=== PATIENT | male | born 1960 | race Caucasian/White ===

== ENCOUNTER 2021-01-20 07:55 | Outpatient (CLI) | payer SELFPAY ==
[2021-01-20 09:44] LABS: Alanine Aminotransferase 42 U/L (16-63); Albumin Level 4.3 g/dL (3.4-5.0); Alkaline Phosphatase 74 U/L (46-116); Anion Gap 5 mmol/L (8-16); Aspartate Amino Transferase 16 U/L (15-37); Bilirubin,Total 0.8 mg/dL (0.00-1.00); Blood Urea Nitrogen 16 mg/dL (7-18); Carbon Dioxide 31 mmol/L (21-32); Chloride 105 mmol/L (98-108); Cholesterol 176 mg/dL (0-200); Estimated Glomerular Filt Rate > 60; Glucose 100 mg/dL (70-99); HDL Direct 38 mg/dL (40-60); LDL Cholesterol Calculated 116 mg/dL (<130); Osmolality Calculated 293 mOsm/kg (285-295); Potassium 4.6 mmol/L (3.5-5.1); Sodium 141 mmol/L (136-145); Total Protein 7.9 g/dL (6.4-8.2); Triglycerides 112 mg/dL (0-150)
[2021-01-22 10:59] LABS: Vitamin D 25 Hydroxy 29 ng/mL (30-100)
== END 2021-01-20 07:56 | disposition home or self-care (01) ==
LOC: CHSLAB 08:09
PROVIDERS: PCP Physician Assistant
DX: E66.9 Obesity, unspecified (principal); E78.2 Mixed hyperlipidemia; I10 Essential (primary) hypertension; I11.9 Hypertensive heart disease without heart failure; I34.0 Nonrheumatic mitral (valve) insufficiency; E55.9 Vitamin D deficiency, unspecified
CPT/HCPCS: 36415; 80053; 80061; 82306; 84443

== ENCOUNTER 2021-03-21 16:23 | Emergency (ER) | payer OTHER, SELFPAY ==
[2021-03-21 16:30] VITALS: BP 154/89; PULSE 79; RESP 16; TEMP 37.2; O2SAT 99
--- NOTE | 2021-03-21 16:42 | ED.MALEGU ---
HPI - Male Genitourinary General Chief complaint: Abdominal Pain Stated complaint: abdominal pain Time Seen by Provider: 03/21/21 16:42 Source: patient Mode of arrival: ambulatory Limitations: no limitations History of Present Illness HPI Narrative: Naida Bar is a 60 yo male with a PMH of SVT comes to [facility] with 2-week history of dysuria and difficulty with starting stream. No nausea vomiting diarrhea or fever; states he drinks a lot of Gatorade Did not get a Covid vaccine Related Data Home Medications Medication Instructions Recorded Confirmed aspirin [Adult Low Dose Aspirin] 81 mg PO DAILY 03/21/21 03/21/21 diltiazem HCl 300 mg PO DAILY 03/21/21 03/21/21 lansoprazole [Prevacid] 30 mg PO DAILY 03/21/21 03/21/21 Allergies Allergy/AdvReac Type Severity Reaction Status Date / Time niacin Allergy Unknown Verified 06/29/15 11:09 Review of Systems Review of Systems: CONSTITUTIONAL: Denies fever, chills, sweats. EYES: Denies visual changes, redness, discharge. ENT: Denies rhinorrhea, congestion, sore throat, otalgia. CARDIOVASCULAR: Denies chest pain, palpitations, edema. RESPIRATORY: Denies dyspnea, wheezing, cough GASTROINTESTINAL: Denies abdominal pain, nausea, vomiting, diarrhea. GENITOURINARY: Has dysuria, hematuria, abnormal discharge SKIN: Denies rash or itching. NEUROLOGIC: Denies numbness, or focal weakness. PSYCHIATRIC: Denies anxiety or depression. [facility] Past Medical History Medical History GERD (gastroesophageal reflux disease) SVT (supraventricular tachycardia) Social History Social History (Updated 03/21/21 @ 16:45 by Giselle Norwood CNP) Smoking status: Never smoker Comments At time of signature, I agree with nursing past medical, surgical, social and family history. There is no relevant family history pertinent to the presenting complaint. Blood pressure elevated at this visit takes medication for SVT and and sees [employer] on regular basis Exam Narrative: GENERAL: This is a well-nourished, well-developed patient, in mild distress. HEAD: normocephalic, atraumatic. EYES: PERRL. Sclera clear/white. Vision is grossly intact. EARS: External ears normal, auditory canals clear and without drainage, TMs normal without perforation. Hearing grossly intact. NOSE: External nose normal without nasal discharge, nares without redness, no rhinorrhea. THROAT: Mucous membranes moist, posterior pharynx NECK: Neck supple, non-tender CARDIOVASCULAR: Regular rate and rhythm without murmurs, gallops, or rubs. RESPIRATORY: Clear to auscultation. Breath sounds equal bilaterally. No wheezes, rales, or rhonchi. GASTROINTESTINAL: Abdomen soft, non-tender, SKIN: warm, intact with no suspicious lesions or rash, good texture and turgor. NEURO: awake, alert, and oriented to person, place and time. There were no obvious focal neurologic abnormalities. Steady gait EXTREMITIES: Normal range of motion. BACK: Nontender without deformity Course Course Emergency Course: UA shows 2+ blood Started on Cipro 500 mg 1 twice daily x5 days while patient makes decision about going to the ER are to get a renal scan discussed the likelihood that this is either renal stone or prostate related. Does not have a primary care physician Vital Signs Vital signs: Vital Signs Temperature 98.9 F 03/21/21 16:30 Pulse Rate 79 03/21/21 16:30 Respiratory Rate 16 03/21/21 16:30 Blood Pressure 154/89 H 03/21/21 16:30 Pulse Oximetry 99 03/21/21 16:30 Temperature 98.9 F 03/21/21 16:30 Pulse Rate 79 03/21/21 16:30 Respiratory Rate 16 03/21/21 16:30 Blood Pressure 154/89 H 03/21/21 16:30 Pulse Oximetry 99 03/21/21 16:30 MDM - Male Genitourinary Differential Diagnosis Differential diagnosis: Likely urinary tract infection, urethritis, prostatitis and other Lab Data Labs: Urine Glucose Negative
== END 2021-03-21 17:22 | disposition home or self-care (01) ==
PROVIDERS: Emergency Provider Nurse Practitioner
DX: R10.30 Lower abdominal pain, unspecified (principal); R31.9 Hematuria, unspecified; K21.9 Gastro-esophageal reflux disease without esophagitis
CPT/HCPCS: 81003; 87086; 99213; G0463

== ENCOUNTER 2021-03-21 18:26 | Emergency (ER) | payer OTHER, SELFPAY ==
--- NOTE | ~2021-03-21 | CT_ITS ---
EXAMINATION: CT abdomen pelvis w con DATE: 03/21/2021 20:14 INDICATION: Hematuria. Suprapubic pain. TECHNIQUE: Computed tomography (CT) of the abdomen and pelvis was performed with 100 cc Omnipaque 350 intravenous contrast. The dose-length product was 718.17 mGy-cm. Automated exposure control and iter ative reconstruction technique were employed. COMPARISON: None. FINDINGS: Lung bases are unremarkable. No significant pleural or pericardial effusion. Heart size is normal. No significant vascular abnormality. No lymphadenopathy. Fatty infiltration of the liver. The spleen, pancreas, adrenal glands and right kidney are unremarkab le. There is a small exophytic left renal cyst. There is acute sigmoid diverticulitis without evidenc e for perforation or abscess. Small amount of free fluid in the pelvis. No free air. Nonobstructive b owel gas pattern. Gallbladder is present. IMPRESSION: 1. Acute uncomplicated sigmoid diverticulitis. Reviewed, dictated and finalized at location A.
[2021-03-21 18:46] VITALS: BP 155/94; PULSE 77; RESP 16; TEMP 37.1; O2SAT 98
--- NOTE | 2021-03-21 18:49 | ED.GENADULT ---
HPI - General Adult General Chief complaint: Urogenital-Male Stated complaint: sent to get a CT Source: patient and family Mode of arrival: ambulatory Limitations: no limitations History of Present Illness HPI narrative: Naida is a 60M with a PMH of suprapubic discomfor and SVT that was referred to the ED from urgent care for hematuria. He has had worsening suprapubic pain for the last 6 months or so. It is worse in the morning and better later in the day, especially after he urinates. He has noticed a decreased stream and some urinary urgency over the last few months as well. He denies fevers, chills, N/V, diarrhea, flank pain, SOB and chest pain. Related Data Home Medications Medication Instructions Recorded Confirmed aspirin [Adult Low Dose Aspirin] 81 mg PO DAILY 03/21/21 03/21/21 diltiazem HCl 300 mg PO DAILY 03/21/21 03/21/21 lansoprazole [Prevacid] 30 mg PO DAILY 03/21/21 03/21/21 Allergies Allergy/AdvReac Type Severity Reaction Status Date / Time niacin Allergy Unknown Unknown Verified 03/21/21 18:52 Review of Systems Constitutional: Constitutional: Reports no additional constitutional complaints Eyes: Eyes: Reports no additional eye complaints ENT: Reports system reviewed and no additional complaints, except as documented Cardiovascular: Cardiovascular: Reports no additional cardiovascular complaints Respiratory: Respiratory: Reports no additional respiratory complaints Gastrointestinal: Gastrointestinal: Reports no additional gastrointestinal complaints Genitourinary: Genitourinary: Reports as per HPI Musculoskeletal: Musculoskeletal: Reports no additional musculoskeletal complaints Integumentary/Breasts: Skin/Breast: Reports system reviewed and no additional complaints, except as docu Neurologic: Reports system reviewed and no additional complaints, except as documented Psychiatric: Psychiatric: Reports no additional psychiatric complaints Endocrine: Endocrine: Reports no additional endocrine complaints Hematologic/Lymphatic: Hematologic/Lymphatic: Reports no additional hematologic/lymphatic complaints Allergic/Immunologic: Allergic/Immunologic: Reports no additional allergic/immunologic complaints [facility] Past Medical History Medical History GERD (gastroesophageal reflux disease) SVT (supraventricular tachycardia) Social History Social History Smoking status: Never smoker Exam Const: General: no acute distress and alert Orientation/consciousness: patient oriented x3 Limitations: No altered mental status HENMT: Head: normal to inspection Other: normocephalic, atraumatic Eyes: Conjunctivae: conjunctivae normal Pupils: Equal, round and reactive pupils present Neck: Neck: normal visual inspection Chest: Chest palpation & inspection: normal inspection of the chest Resp: Effort & Inspection: normal respiratory effort, not labored, no retractions and no use of accessory muscles Cardio: Rate: regular rate GI: Inspection: non-distended GI Palp: Yes Soft to palpation, No Tenderness to palpation present (GI), No Guarding due to palpation present (GI) and No Rigid due to palpation : General: Yes no CVA tenderness Other: Moderate suprapubic tenderness Skin: General skin exam: normal color Rashes: no rashes Neuro: General: patient oriented x3 and moves all extremities Extrem: General: normal to inspection Psych: Appearance: grossly normal and well kempt Mental Status: mental status grossly normal Thought content: Yes Normal thought content present Course Course Emergency Course: , and blood work as well as a bladder scan. Labs largely unremarkable, outside UA showed only 2+ hematuria EXAMINATION: CT abdomen pelvis w con DATE: 03/21/2021 20:14 INDICATION: Hematuria. Suprapubic pain. TECHNIQUE: Computed tomography (CT) of the abdomen and pelvis was performed
--- NOTE | 2021-03-21 18:59 | PC.NURSE ---
Bladder scan completed. 43 ml noted during scan. Dr. Woods notified.
[2021-03-21 19:10] LABS: Basophils Absolute Auto 0.03 K/mm3 (0.00-0.10); Basophils Percent Auto 0.3 % (0.0-1.0); Eosinophils Absolute Auto 0.16 K/mm3 (0.02-0.50); Eosinophils Percent Auto 1.8 % (1.0-6.0); Hematocrit 43.1 % (40.0-54.0); Hemoglobin 15.5 g/dL (14.0-18.0); Immature Granulocyte Absolute 0.05 K/mm3 (0.00-0.00); Immature Granulocyte Percent A 0.6 % (0.0-0.0); Lymphocytes Percent Auto 20.2 % (18.0-42.0); Mean Corpuscular Hemoglobin 32.2 pg (27.0-31.0); Mean Corpuscular Volume 89.4 fL (78.0-102.0); Mean Platelet Volume 9.6 fl (8.7-11.0); Monocytes Absolute Auto 0.73 K/mm3 (0.10-0.90); Monocytes Percent Auto 8.2 % (2.0-11.0); Neutrophils Absolute Auto 6.1 K/mm3 (1.7-7.2); Neutrophils Percent Auto 68.9 % (50.0-70.0); Platelet Count Result 242 K/mm3 (150-420); Red Blood Count 4.82 M/mm3 (4.70-6.10); Red Cell Distribution Width 11.3 % (11.6-14.4); White Blood Count 8.9 K/mm3 (4.8-10.8)
--- NOTE | 2021-03-21 19:34 | PC.NURSE ---
Report given to NEVAEH English
[2021-03-21 19:37] LABS: Alanine Aminotransferase 35 U/L (16-63); Albumin Level 3.9 g/dL (3.4-5.0); Alkaline Phosphatase 76 U/L (46-116); Anion Gap 10 mmol/L (8-16); Aspartate Amino Transferase 19 U/L (15-37); Bilirubin,Total 0.6 mg/dL (0.00-1.00); Blood Urea Nitrogen 13 mg/dL (7-18); Calcium 8.6 mg/dL (8.5-10.1); Carbon Dioxide 29 mmol/L (21-32); Chloride 101 mmol/L (98-108); Estimated CRCL calculation 76 ml/min; Estimated Glomerular Filt Rate > 60; Glucose 99 mg/dL (70-99); Osmolality Calculated 290 mOsm/kg (285-295); Potassium 4.1 mmol/L (3.5-5.1); Prostate Specific Antigen 0.7 ng/mL (< OR = 4.0); Sodium 140 mmol/L (136-145)
[2021-03-21] MEDS: CIPROFLOXACIN 500 MG TAB PO (21:15)
[2021-03-21] MEDS: metroNIDAZOLE 250 MG TABLET 500 MG PO (21:15)
[2021-03-21 21:25] VITALS: BP 128/88; PULSE 70; RESP 20; O2SAT 96
== END 2021-03-21 21:32 | disposition home or self-care (01) ==
PROVIDERS: Emergency Provider Family Medicine; PCP Physician Assistant
DX: K57.92 Diverticulitis of intestine, part unspecified, without perforation or abscess without bleeding (principal)
CPT/HCPCS: 36415; 74177; 80053; 84153; 85025; 99283; 99284; A9270; G0103; Q9967

== ENCOUNTER 2021-04-08 16:45 | Emergency (ER) | payer OTHER, SELFPAY ==
--- NOTE | ~2021-04-08 | XR_ITS ---
EXAMINATION: XR hand LT min 3V DATE: 04/08/2021 18:39 INDICATION: Left hand injury with a circular saw. TECHNIQUE: 4 views of left hand were obtained. COMPARISON: None. FINDINGS: There are lacerations of the third and fourth digits. There is a comminuted extra-articular fracture of fourth distal phalanx. There are punctate chips of bone at ulnar aspect of third distal phalanx, likely fractures. There is severe osteoarthritis of first carpometacarpal joint and mild ost eoarthritis of many of the metacarpophalangeal joints and interphalangeal joints. There is moderate o steoarthritis of first interphalangeal joint and second-fifth distal interphalangeal joints. IMPRESSION: 1. Comminuted fracture of fourth distal phalanx. Chip fractures of third distal phalanx. 2. Polyarticular osteoarthritis. Reviewed, dictated and finalized at location A. [employer]
--- NOTE | 2021-04-08 18:17 | ED.WOUNDLAC ---
HPI - Wound/Laceration General Chief Complaint: Wound/Laceration Stated Complaint: laceration to 2 fingers Time Seen by Provider: 04/08/21 18:17 Source: patient Mode of arrival: ambulatory Limitations: no limitations History of Present Illness HPI narrative: 60-year-old man comes in today complaining of lacerations to his left index long and ring fingers happened just prior to arrival. Patient states he was using a circular saw on a sheet of plywood when he cut his fingers. He does not recall his last tetanus shot. States he has some numbness of his fingertips on his long and ring finger. He is right handed Onset (ago): minute(s) Location: other ( left index long and ring fingers) Place: home Patient tetanus UTD: No Context: accidental Associated symptoms: pain and loss of feeling/numbness Treatments prior to arrival: bandage Related Data Home Medications Medication Instructions Recorded Confirmed aspirin [Adult Low Dose Aspirin] 81 mg PO DAILY 03/21/21 04/08/21 diltiazem HCl 300 mg PO DAILY 03/21/21 04/08/21 lansoprazole [Prevacid] 30 mg PO DAILY 03/21/21 04/08/21 Allergies Allergy/AdvReac Type Severity Reaction Status Date / Time niacin Allergy Unknown Unknown Verified 04/08/21 19:13 Review of Systems Constitutional: Constitutional: Denies chills and Denies fever(s) Gastrointestinal: Gastrointestinal: Denies nausea and Denies vomiting Integumentary/Breasts: Skin/Breast: Reports as per HPI, Denies pruritus, Denies erythema and Denies rash Neurologic: Denies dizziness Hematologic/Lymphatic: Hematologic/Lymphatic: Denies easy bleeding and Denies easy bruising PMF Past Medical History Medical History GERD (gastroesophageal reflux disease) SVT (supraventricular tachycardia) Social History Social History Smoking status: Never smoker Exam Const: General: healthy appearing and alert Orientation/consciousness: patient oriented x3 Other: mild acute distress. Skin: General skin exam: normal color, no jaundice and no pallor Rashes: no rashes Other: Oblique, irrregular lacerations on the ulnar/palmar aspects of the left ring and long fingers distal to the DIP.. Nail beds are intact. abrasion on the tip of the index finger. Decreased sensation just distal to the lacerations. Neuro: General: patient oriented x3 Extrem: General: normal to inspection and no clubbing, cyanosis or edema Psych: Appearance: grossly normal and well kempt Mental Status: mental status grossly normal Affect: normal affect Attitude: cooperative Thought content: Yes Normal thought content present Course Vital Signs Vital signs: Vital Signs Temperature 37.0 C 04/08/21 19:14 Pulse Rate 64 04/08/21 19:14 Respiratory Rate 14 04/08/21 19:14 Blood Pressure 161/87 H 04/08/21 19:14 Pulse Oximetry 98 04/08/21 19:14 Temperature 37.0 C 04/08/21 19:14 Pulse Rate 64 04/08/21 19:14 Respiratory Rate 14 04/08/21 19:14 Blood Pressure 161/87 H 04/08/21 19:14 Pulse Oximetry 98 04/08/21 19:14 Procedures Laceration Laceration 1: Date: 04/08/21 Time: 19:32 Site: other ( ring finger) Side (If applicable): left Size (cm): 2 Description: irregular Depth: simple, single layer ( into the bone on the ulnar aspect of the distal phalanx) Local Anesthetic: lidocaine 1% ( digital block) Amount of anesthesia used (mL): 3 Pre-repair: wound explored, irrigated extensively (200 cc soapy water, 100 NS), extensive debridement and wound margins revised ====== Skin Level ====== Skin layer closed with: nylon Size (cm): 4-0 Number of sutures: 7 Technique: simple, interrupted ====== Subcutaneous Layer ====== ====== Muscle Layer ====== ====== Tendon Layer ====== Laceration 2: Date:
[2021-04-08] MEDS: TETANUS,DIPHTHERIA,AC PERTUSSIS ADULT 0.5 ML (ADACEL) IM (18:56)
[2021-04-08] MEDS: traMADol HCL (*CRX) 50 MG TABLET PO (18:58)
[2021-04-08 19:14] VITALS: BP 161/87; PULSE 64; RESP 14; TEMP 37; O2SAT 98
[2021-04-08] MEDS: LIDOCAINE HCL 1% LOCAL INJ 20 ML VIAL INFILTRATE (19:31)
--- NOTE | 2021-04-08 20:50 | PC.NURSE ---
seven sutures to left ring finger and nine suture to left 3th finger.
[2021-04-08] MEDS: CEPHALEXIN 500 MG CAPSULE 1000 MG PO (21:04)
[2021-04-08 21:43] VITALS: BP 159/88; PULSE 65; RESP 15; O2SAT 97
== END 2021-04-08 21:12 | disposition home or self-care (01) ==
PROVIDERS: Emergency Provider Emergency Medicine; PCP Physician Assistant
DX: S61.215A Laceration without foreign body of left ring finger without damage to nail, initial encounter (principal); S61.213A Laceration without foreign body of left middle finger without damage to nail, initial encounter; W27.0XXA Contact with workbench tool, initial encounter
CPT/HCPCS: 12002; 73130; 90471; 90715; 99283; A9270

== ENCOUNTER 2021-11-27 16:17 | Emergency (ER) | payer OTHER, SELFPAY ==
[2021-11-27 16:26] VITALS: BP 139/83; PULSE 74; RESP 20; TEMP 36.8; O2SAT 98
--- NOTE | 2021-11-27 17:38 | ED.EYEPROB ---
HPI - Eye Problem General Chief complaint: Eye Problems Stated complaint: oil in right eye Time Seen by Provider: 11/27/21 16:40 Source: patient, RN notes reviewed and old records reviewed Mode of arrival: ambulatory Limitations: no limitations History of Present Illness HPI Narrative: 61 year old male who presents to [facility] with complaints of getting air conditioner oil in his right eye at about 0800 this morning, He states that he flushed his right eye out a couple times today with water for 30seconds to a minute at a time. He reports that the vision in his right eye has become fussy as the day has progressed so he though he better get his eye looked at. Patient states right eye feels scratchy when he blinks and his eye is red and is constantly watering. Patient states that he had his glasses on and stuff flew up under his glasses and go in his right eye, states material is called polyalkalene glycol PAG oil and has viscosity of 68 [place] acuity right eye with glasses 20/70 left eye with glasses. MD chief complaint: other (polyalkalene glycol(air conditiioner oil)) Onset (ago): hour(s) (at o8oo this morning) Related Data Home Medications Medication Instructions Recorded Confirmed aspirin 81 mg tablet,delayed 81 mg PO DAILY 03/21/21 11/27/21 release (Adult Low Dose Aspirin) diltiazem HCl 300 mg 300 mg PO DAILY 03/21/21 11/27/21 capsule,extended release 24 hr lansoprazole 30 mg capsule,delayed 30 mg PO DAILY 03/21/21 11/27/21 release (Prevacid) Allergies Allergy/AdvReac Type Severity Reaction Status Date / Time niacin Allergy Unknown Unknown Verified 04/08/21 19:13 Review of Systems Review of Systems: CONSTITUTIONAL: Denies fever, chills, or sweats. EYES: Positive for visual changes with redness to right eye constant watering and feels abrasive when he blinks. ENT: Denies rhinorrhea, congestion, sore throat, or otalgia. CARDIOVASCULAR: Denies chest pain, palpitations, or edema. RESPIRATORY: Denies cough or dyspnea. GASTROINTESTINAL: Denies abdominal pain, nausea, vomiting, or diarrhea. GENITOURINARY: Denies dysuria or hematuria. SKIN: Denies rash or itching. MUSCULOSKELETAL: Denies back pain, joint pain, or myalgia. NEUROLOGIC: Denies headache, numbness, or weakness. PSYCHIATRIC: Denies anxiety or depression. All systems reviewed & are unremarkable except as noted in HPI and below PMFSH Past Medical History Medical History GERD (gastroesophageal reflux disease) SVT (supraventricular tachycardia) Social History Social History Smoking status: Never smoker Comments At time of signing agree with nursing documentation of past medical,surgical, social, and family history.No relevant family history pertinent to presenting complaint. Exam Narrative: GENERAL: Well-appearing, well-nourished, and in no acute distress, HEAD: Normocephalic, atraumatic. EYES: PERRLA and EOMI. visual acuity right eye with glasses 20/70, left eye with glasses 20/20. Right eye has red sclera and constant watering reports vision to be fuzzy and feels abrasive irritation when he blinks no sharp pain. ENT: Nares clear, no rhinorrhea or epistaxis. Mucous membranes moist.TM's normal with good light reflex, throat pink with no lesions exudates or tonsil swelling. NECK: Supple.no lymphadenopathy CHEST: Clear to auscultation. No respiratory distress.O2 sat 98% on room air HEART: Regular rate and rhythm. No murmur heard. Normal peripheral pulses. ABDOMEN: Soft, nontender, nondistended, normal active bowel sounds. EXTREMITIES: Normal range of motion. No edema. SKIN: Warm, dry, no rash. NEURO: No focal deficits. Alert and oriented x3. Course Course Level of Care: Express Care Visit Vital Signs Vital signs: Vital Signs Temperature 36.8 C 11/27/21 16:26 Pulse Rate 74 11/27/21 16:26 Respiratory Rate 20 11/27/21 16:26 Blood P
--- NOTE | 2021-11-27 20:17 | PC.NURSE ---
1720 DATASTAGE CONSULTANT/RN previously spoke with poison control and eye irrigated for 5 minutes with water as recommended. poison control aware pt did have SDS info as they requested. pt stated no change in eye after irrigation. Noted DATASTAGE CONSULTANT previously spoke with [facility] physician , recommended transfer to [place].
== END 2021-11-27 17:20 | disposition short-term general hospital (02) ==
PROVIDERS: Emergency Provider Registered Nurse
DX: T26.91XA Corrosion of right eye and adnexa, part unspecified, initial encounter (principal); K21.9 Gastro-esophageal reflux disease without esophagitis; Z79.82 Long term (current) use of aspirin
CPT/HCPCS: 99212; G0463

== ENCOUNTER 2023-04-12 08:14 | Outpatient (CLI) | payer OTHER, SELFPAY ==
[2023-04-12 09:15] LABS: Alanine Aminotransferase 36 U/L (16-63); Alkaline Phosphatase 68 U/L (46-116); Anion Gap 7 mmol/L (8-16); Aspartate Amino Transferase 16 U/L (15-37); Bilirubin,Total 0.5 mg/dL (0.00-1.00); Blood Urea Nitrogen 14 mg/dL (7-18); Calcium 8.9 mg/dL (8.5-10.1); Carbon Dioxide 32 mmol/L (21-32); Chloride 103 mmol/L (98-108); Cholesterol 190 mg/dL (0-200); Estimated Glomerular Filt Rate > 60; Glucose 118 mg/dL (70-99); HDL Direct 42 mg/dL (40-60); LDL Cholesterol Calculated 129 mg/dL (<130); Osmolality Calculated 295 mOsm/kg (285-295); Prostate Specific Antigen 1.3 ng/mL (< OR = 4.0); Sodium 142 mmol/L (136-145); Total Protein 7.7 g/dL (6.4-8.2); Triglycerides 96 mg/dL (0-150)
== END 2023-04-12 08:15 | disposition home or self-care (01) ==
LOC: CHSLAB 08:17
DX: E66.9 Obesity, unspecified (principal); E78.2 Mixed hyperlipidemia; I10 Essential (primary) hypertension; I11.9 Hypertensive heart disease without heart failure; I34.0 Nonrheumatic mitral (valve) insufficiency
CPT/HCPCS: 36415; 80053; 80061; 84153

== ENCOUNTER 2024-09-20 12:00 | Emergency (ER) | payer OTHER, SELFPAY ==
--- NOTE | ~2024-09-20 | XR_ITS ---
XR chest 2V Ordering provider: Sharifa Johnson APRN History: 63 years Male with . cough x 1 day . Comparison: March 08, 2014 FINDINGS: MEDIASTINUM: The cardiac silhouette is slightly enlarged. Congestive ila. LUNGS: No infiltrates, effusions or pneumothorax. OTHER: No free air under the diaphragm. Degenerative changes of the spine. IMPRESSION: No acute cardiopulmonary pathology. Reviewed, dictated and finalized at location A.
--- NOTE | 2024-09-20 12:03 | ED_ITS ---
HPI - URI/Sore Throat General Chief Complaint: Upper Respiratory Infection Stated Complaint: chest congestion/wheezing Time Seen by Provider: 09/20/24 12:16 Source: patient, RN notes reviewed and old records reviewed Mode of arrival: ambulatory Limitations: no limitations History of Present Illness HPI Narrative: 63-year-old male presents to the [facility] with complaints of a productive cough, chest louis when he coughs. Denies chest pain. Reports that it feels like he has chest congestion and wheezing. Patient denies any extremity edema. Symptoms started last night, approximately 14 hours prior to arrival. No Treatment prior to arrival Onset (ago): hour(s) Treatments prior to arrival: none Related Data Home Medications ?Medication ?Instructions ?Recorded ?Confirmed ?Last Taken ?Type aspirin 81 mg tablet,delayed 81 mg PO DAILY 03/21/21 11/27/21 Unknown History release (Adult Low Dose Aspirin) diltiazem HCl 300 mg 300 mg PO DAILY 03/21/21 11/27/21 Unknown History capsule,extended release 24 hr lansoprazole 30 mg capsule,delayed 30 mg PO DAILY 03/21/21 11/27/21 Unknown History release (Prevacid) metoprolol succinate 25 mg mg PO 09/20/24 Unknown History tablet,extended release 24 hr Allergies Allergy/AdvReac Type Severity Reaction Status Date / Time niacin Allergy Unknown Unknown Verified 09/20/24 12:13 Review of Systems Review of Systems: All systems reviewed & are unremarkable except as noted in HPI and below Constitutional: Constitutional: Reports no additional constitutional com plaints ENT: Reports system reviewed and no additional complaints, except as documented Cardiovascular: Cardiovascular: Reports no additional cardiovascular complaints, Denies chest pain and Denies dyspnea Respiratory: Respiratory: Reports as per HPI, Reports chest congestion, Reports cough, Denies dyspnea and Reports wheezing Musculoskeletal: Musculoskeletal: Reports no additional musculoskeletal complaints Integumentary/Breasts: Skin/Breast: Reports system reviewed and no additional complaints, except as docu [facility] Past Medical History Medical History GERD (gastroesophageal reflux disease) SVT (supraventricular tachycardia) Social History Social History Smoking status: Never smoker Comments At the time of my signature, I reviewed and agree with the nursing past medical, surgical, social, and family history. There is no relevant family history pertinent to the patient complaint. Exam Const: General: cooperative, healthy appearing, comfortable, no acute distress, well developed, alert and well nourished Nutritional Appearance: well nourished Orientation/consciousness: patient oriented x3 Limitations: no limitations HENMT: Head: normal to inspection Ears: hearing grossly normal bilaterally, external ears normal, TM's normal bilaterally, EAC's normal, mastoids normal and no periauricular adenopathy Face/Nose/Sinus: Normal external nose present, Normal nares present, Normal nasal mucous membranes and turbinates present and No nasal discharge present Mouth: Yes Normal oral and palatal mucosa present, Yes lip normal, Yes tongue normal and Yes moist mucous membranes Throat: posterior oropharynx normal, uvula midline and no uvular edema Eyes: General: appearance normal, both eyes and all related structures Alignment and Position: alignment normal Neck: Neck: normal visual inspection, full ROM, no lymphadenopathy and no meningeal signs Chest: Chest palpation & inspection: normal inspection of the chest Resp: Effort & Inspection: normal respiratory effort and able to speak in complete sentences Auscultation: no crackles, no rales, no rhonchi and wheezes expiratory wheezes and scattered wheezes Cardio: Rate: regular rate Skin: General skin exam: normal color and no rashes or lesions noted Neuro: General: patient oriented x3, gait normal, moves all extremities and no meningeal signs Cognition (Neuro): normal cognition Speech: normal speech Gait exam (Neuro): Normal gait present Extrem: General: normal to inspection, full ROM, capillary refill normal and normal gait Psych: Appearance: grossly normal and well kempt Mental Status: mental status grossly normal Speech and movement: Normal speech and movement present and Clear speech present Affect: normal affect Attitude: cooperative Course Course Level of Care: Express Care Visit Vital Signs Vital signs: Vital Signs Temperature 98.7 F 09/20/24 12:08 Pulse Rate 66 09/20/24 12:08 Respiratory Rate 20 09/20/24 12:08 Blood Pressure 144/78 H 09/20/24 12:08 Pulse Oximetry 96 09/20/24 12:08 Oxygen Delivery Room Air 09/20/24 12:08 Temperature 98.7 F 09/20/24 12:08 Pulse Rate 66 09/20/24 12:08 Respiratory Rate 20 09/20/24 12:08 Blood Pressure 144/78 H 09/20/24 12:08 Pulse Oximetry 96 09/20/24 12:08 Oxygen Delivery Room Air 09/20/24 12:08 Reviewed MDM - URI/Sore Throat MDM Narrative Medical decision making narrative: Patient sitting in exam room. Patient is nontoxic, vitals are stable except blo od pressure mildly elevated. Patient presents with approximately 14 hours of URI symptoms, cough. Denies any other symptoms. No fevers. No sinus congestion. Chest x-ray negative Patient appropriate for outpatient treatment with close follow-up Discharge instructions reviewed with patient, as well as provided in writing per nursing staff. The instructions also include specific and strict return/GO TO THE ER as well as f/u information. All questions have been answered, and the patient deny any further questions with discharge and discharge plan. Some parts of this dictation were generated by voice recognition software and may contain typographical and/or grammatical inaccuracies. Differential Diagnosis Differential diagnosis: Likely upper respiratory infection, otitis media, sinusitis, viral infection, bronchitis and influenza Imaging Data Radiologist's impression: XR chest 2V Ordering provider: Sharifa Johnson APRN History: 63 years Male with . cough x 1 day . Comparison: March 08, 2014 FINDINGS: MEDIASTINUM: The cardiac silhouette is slightly enlarged. Congestive ila. LUNGS: No infiltrates, effusions or pneumothorax. OTHER: No free air under the diaphragm. Degenerative changes of the spine. IMPRESSION: No acute cardiopulmonary pathology. Critical Care Time Critical Care Time Critical Care Time: No Discharge Plan Discharge Clinical Impression: Bronchitis Upper respiratory infection Qualifiers: URI type: unspecified viral URI Qualified Code(s): J06.9 - Acute upper respiratory infection, unspecified Patient Disposition: Home Condition: Stable Instructions: Upper Respiratory Infection (ED), Acute Bronchitis (ED) Additional Instructions: our symptoms are likely due to a viral illness. Typically viral infections last 7-10 days, can linger for couple of weeks. It is very important to treat your symptoms. Drink plenty of water, Gatorade, Pedialyte, ice pops or Jell-O. -Alternate Tylenol and Motrin per package directions for fever or pain. You can alternate every 4 hours -Antihistamine medication such as Zyrtec/Claritin/Anamika during the day can help improve symptoms. -doing daily nasal irrigations can help relieve pressure your sinuses. Things like a Neti pot -Use Flonase twice a day for 5 days then daily to help reduce the inflammation and dry up your sinuses. -You can also use Coricidin HBP or Mucinex. Be sure to drink plenty of water with this medication at least 8 ounces with every dose and it is important to drink 8 to 10 glasses of water per day. Water is a natural decongestant -Frequent hand washing or hand videogame tester is one of the best ways to prevent spread of infection. -Using a vaporizer or humidifier at night will also help thin secretions and help with coughing up phlegm. -Follow up with primary care provider in 7-10 days if condition is not improving - For new or worsening symptoms go directly to the nearest ER Patient Language: Mongolian Prescriptions: New albuterol sulfate 90 mcg/actuation HFA aerosol inhaler 2 puff inhalation QID PRN (Reason: shortness of breath or wheezing) Qty: 6.7 0RF No Action diltiazem HCl 300 mg capsule,extended release 24hr 300 mg PO DAILY aspirin [Adult Low Dose Aspirin] 81 mg Tablet,Delayed Release (Dr/Ec) 81 mg PO DAILY lansoprazole [Prevacid] 30 mg Capsule,Delayed Release(Dr/Ec) 30 mg PO DAILY metoprolol succinate 25 mg tablet extended release 24 hr PO Follow-up/Referrals: Mik,REGULO Esparza [Primary Care Provider] - 1 Week ([facility] follow-up Blood pressure check, 144/78) Stand Alone Forms: Work/School Release IP Time of Disposition: 12:55
[2024-09-20 12:08] VITALS: BP 144/78; PULSE 66; RESP 20; TEMP 37.1; O2SAT 96
--- OUTSIDE RECORDS SUMMARY | 2024-09-20 13:51 | XMS_ITS | Clinical Summary ---
Author Organization [facility] Address [address] [place] [address] Phone Care Team Providers Care Oil Exploration Engineer Name Role Phone CAROLA CHAO Fe Primary Care Provider [phone] Reason for Visit and Chief Complaint HEART CENTER CHECK UP Plan of Treatment No Plan of Treatment Recorded Assessments Includes: Assessments from this encounter No Assessments Recorded Medical Equipment - Implanted Devices Includes: Current Devices No Medical Equipment Recorded Medications Administered Includes: Administered Medications from this encounter No Administered Medications Recorded Results Includes: Results discussed during this encounter No Results Recorded For Specified Dates History of Present Illness Includes: History of Present Illness from this encounter No History of Present Illness Recorded Social History No Social History Recorded - Smoking Status Unknown Medical History Includes: Medical History addressed during this encounter No Medical History Recorded Family History Includes: Family History addressed during this encounter No Family History Recorded Review of Systems Includes: Review of Systems from this encounter No Review of Systems Recorded Mental Status Includes: Mental Status from this encounter No Mental Status Recorded Functional Status Includes: Functional Status from this encounter No Functional Status Recorded Physical Exam Includes: Physical Exam from this encounter No Physical Exam Recorded Encounters Encounter Provider Location Date Check-In Time Check- Out Time Diagnosis HEART CENTER CHECK UP MANNY RYAN MD [facility]- 4 1:45PM 2:27PM Insurance Includes: Active Insurance Policies Plan Name Member ID Group # Subscriber Relationship Effect patrick Dates 1 - [facility] [id number] STEFANY CRANE Se lf Clinical Notes Includes: Clinical Notes from this encounter No Clinical Notes Recorded
--- OUTSIDE RECORDS SUMMARY | 2024-09-20 13:51 | XMS_ITS | Clinical Summary ---
Author Organization [facility] Address [address] [place] [address] Phone Care Team Providers Care Watershed Tender Name Role Phone CAROLA CHAO Fe Primary Care Provider [phone] Reason for Visit and Chief Complaint HEART [...] Out Time Diagnosis HEART CENTER CHECK UP NORRIS ORR [facility]- 3 3:09PM 3:35PM Insurance Includes: Active Insurance Policies Plan Name Member ID Group # Subscriber Relationship Effect patrick Dates 1 - [facility] [id number] STEFANY CRANE Se lf Clinical Notes Includes: Clinical Notes from this encounter No Clinical Notes Recorded
--- OUTSIDE RECORDS SUMMARY | 2024-09-20 13:51 | XMS_ITS ---
Care Plan - [facility] Created on: September 20, 2024 STEFANY CRANE : 1960 Sex: Male Author Organization [facility] Address [address] [place] [address] Phone Care Team Providers Care Ceramics Artist Name Role Phone CAROLA CHAO Primary Care Provider [phone]
--- OUTSIDE RECORDS SUMMARY | 2024-09-20 13:51 | XMS_ITS | Clinical Summary ---
Author Organization [facility] Address [address] [place] [address] Phone Care Team Providers Care Obedience Trainer Name Role Phone JEREMIE CAROLA Fe Primary Care Provider [phone] Reason for Visit and Chief Complaint HEART [...] Diagnosis HEART CENTER CHECK UP [facility]- 3 9:49AM 10:09AM Insurance Includes: Active Insurance Policies Plan Name Member ID Group # Subscriber Relationship Effect patrick Dates 1 - [facility] [id number] STEFANY CRANE Se lf Clinical Notes Includes: Clinical Notes from this encounter No Clinical Notes Recorded
--- OUTSIDE RECORDS SUMMARY | 2024-09-20 13:51 | XMS_ITS | Clinical Summary ---
[facility] Address [address] [address] Phone Care Team Providers Care Director Systems Name Role Phone Provider, None Primary Care Provider Unavailabl e Allergies Active Allergy Reactions Criticality Noted Date Comments Niacin Rash 04/22/2016 Medications digoxin (LANOXIN) 250 MCG Tablet Take by mouth daily. 1 02/19/2016 Active dilTIAZem (CARDIZEM CD) 300 MG CAPSULE SR 24 HR Take 300 mg by mouth daily. 1 02/19/2016 Active lansoprazole (PREVACID) 15 MG CAPSULE DELAYED RELEASE Take 15 mg by mouth daily. Active Aspirin 81 MG Tablet Take 81 mg by mouth daily. Active traMADol (ULTRAM) 50 MG Tablet Take 1 Tab by mouth every 6 hours as needed for Moderate or more severe pain. 10 Tab 05/20/2019 Active naproxen (NAPROSYN) 500 MG Tablet Take 1 Tab by mouth 2 times daily as needed for Moderate or more severe pain. 20 Tab 05/20/2019 Active HYDROcodone-vera taminophen (NORCO) 5-325 MG Tablet Take 1-2 Tabs by mouth every 6 hours as needed for Moderate or more severe pain. 12 Tab 05/21/2019 Active meloxicam (MOBIC) 15 MG Tablet Take 1 Tab by mouth daily. 10 Tab 05/21/2019 Active Social History Tobacco Use Types Packs/Day Years Used Date Smoking Tobacco: Former Cigarettes 1 5 Smokeless Tobacco: Current Alcohol Use Standard Drinks/Week Comments Yes 0 (1 standard drink = 0.6 oz pur e alcohol) 1 or 2 beers daily Sex and Gender Information Value Date Recorded Sex Assigned at Not on file Legal Sex Male 7:32 PM CDT Gender Identity Not on file Sexual Orientation Not on file Last Filed Vital Signs Vital Sign Reading Time Taken Comments Blood Pressure 119/86 05/21/2019 12:23 AM AIRCRAFT MAGNETO MECHANIC Pulse 65 05/21/2019 12:23 AM AIRCRAFT MAGNETO MECHANIC Temperature 36.8 C (98.3 F) 05/20/2019 9:39 PM AIRCRAFT MAGNETO MECHANIC Respiratory Rate 18 05/21/2019 12:23 AM AIRCRAFT MAGNETO MECHANIC Oxygen Saturation 97% 05/21/2019 12:23 AM AIRCRAFT MAGNETO MECHANIC Inhaled Oxygen Concentration - - Weight 90.7 kg (200 lb) 05/20/2019 9:39 PM AIRCRAFT MAGNETO MECHANIC Height 180.3 cm (5' 11 ) 05/20/2019 9:39 PM AIRCRAFT MAGNETO MECHANIC Body Mass Index 27.89 05/20/2019 9:39 PM AIRCRAFT MAGNETO MECHANIC Plan of Treatment Health Maintenance Due Date Last Done Comments Hepatitis C Virus (HCV) Screening 1960 TdaP Immunization 1960 Colonoscopy 2005 Colorectal Cancer Screening 2005 Cologuard 2010 Immunochemical Fecal Occult Blood 2010 Pneumococcal Immunization (5 0+ years) (1 of 1 - PCV) 2010 Zoster Immunization (1 of 2) 2010 PSA Discussion 10/03/2015 Influenza Immunization (#1) 2024 SARS-COV-2 Immunization (1 - 2023- season) 2024 Respiratory Syncytial Virus (RSV) Immunization (Adult) (1 - 1-dose 75+ series) 10/03/2035 Hepatitis B Immunization Aged Out No longer eligible based on patient's age to complete this topic Meningococcal Immunization (ACWY) Aged Out No longer eligible based on patient's age to complete this topic Pneumococcal Immunization Combined Aged Out No longer eligible based on patient's age to complete this topic Rotavirus Immunization Aged Out No lo nger eligible based on patient's age to complete this topic Care Teams Director Systems Relationship Specialty Start Date End Date Provider, None [place] PCP - General 04/22/16
--- OUTSIDE RECORDS SUMMARY | 2024-09-20 13:51 | XMS_ITS | Clinical Summary ---
Author Organization [facility] Address [address] [place] [address] Phone Care Team Providers Care Equipment Operator Warehouse Name Role Phone CAROLA CHAO Primary Care Provider [phone] Reason for Visit and Chief Complaint HEART [...] from this encounter No Physical Exam Recorded Insurance Includes: Active Insurance Policies Plan Name Member ID Group # Subscriber Relationship Effect patrick Dates 1 - [facility] [id number] STEFANY CRANE Se lf Clinical Notes Includes: Clinical Notes from this encounter No Clinical Notes Recorded
--- OUTSIDE RECORDS SUMMARY | 2024-09-20 13:52 | XMS_ITS | Clinical Summary ---
Author Organization [facility] Address [address] [place] [address] Phone Care Team Providers Care Car Groomer Name Role Phone JEREMIE CAROLA Fe Primary Care Provider [phone] Reason for Visit and Chief Complaint HEART [...] Diagnosis HEART CENTER CHECK UP [facility] OR[facility]- 3 9:49AM 10:09AM Insurance Includes: Active Insurance Policies Plan Name Member ID Group # Subscriber Relationship Effect patrick Dates 1 - [facility] [id number] STEFANY CRANE Se lf Clinical Notes Includes: Clinical Notes from this encounter No Clinical Notes Recorded
--- OUTSIDE RECORDS SUMMARY | 2024-09-20 13:52 | XMS_ITS | Clinical Summary ---
Author Organization [facility] Address [address] [place] [address] Phone Care Team Providers Care Director Of Primary Care Name Role Phone CAROLA CHAO Primary Care Provider [phone] Reason for Visit and Chief Complaint HEART [...] Subscriber Relationship Effect patrick Dates 1 - [facility] [id number] STEFANY CRANE Se lf Clinical Notes Includes: Clinical Notes from this encounter No Clinical Notes Recorded
--- OUTSIDE RECORDS SUMMARY | 2024-09-20 13:52 | XMS_ITS | Clinical Summary ---
Author Organization [facility] Address [address] [place] [address] Phone Care Team Providers Care Vocational Rehabilitation Supervisor Name Role Phone CAROLA CHAO Fe Primary Care Provider [phone] Reason for Visit and Chief Complaint HEART [...] HEART CENTER CHECK UP MANNY RYAN MD [facility]- 4 1:45PM 2:27PM Insurance Includes: Active Insurance Policies Plan Name Member ID Group # Subscriber Relationship Effect patrick Dates 1 - [id number] STEFANY CRANE Se lf Clinical Notes Includes: Clinical Notes from this encounter No Clinical Notes Recorded
--- OUTSIDE RECORDS SUMMARY | 2024-09-20 13:52 | XMS_ITS | Clinical Summary ---
Author Organization [facility] Address [address] [place] [address] Phone Care Team Providers Care Machine Veneer Repairer Name Role Phone CAROLA CHAO Fe Primary Care Provider [phone] Reason for Visit and Chief Complaint HEART [...] Diagnosis HEART CENTER CHECK UP [facility]- 3 3:09PM 3:35PM Insurance Includes: Active Insurance Policies Plan Name Member ID Group # Subscriber Relationship Effect patrick Dates 1 - [facility] [id number] STEFANY CRANE Se lf Clinical Notes Includes: Clinical Notes from this encounter No Clinical Notes Recorded
--- OUTSIDE RECORDS SUMMARY | 2024-09-20 13:52 | XMS_ITS ---
Care Plan - [facility] Created on: September 20, 2024 STEFANY CRANE : 1960 Sex: Male Author Organization [facility] Address [address] [place] [address] Phone Care Team Providers Care Lactation Nurse Name Role Phone CAROLA CHAO Primary Care Provider [phone]
--- OUTSIDE RECORDS SUMMARY | 2024-09-20 13:52 | XMS_ITS | Clinical Summary ---
Author Organization [facility] Address [address] [place] [address] Phone Care Team Providers Care E Business Project Manager Name Role Phone CAROLA CHAO Primary Care Provider [phone] Reason for Visit and Chief Complaint HEART [...] Subscriber Relationship Effect patrick Dates 1 - [facility] [id number] STEFANY CRANE Se lf Clinical Notes Includes: Clinical Notes from this encounter No Clinical Notes Recorded
--- OUTSIDE RECORDS SUMMARY | 2024-09-20 13:52 | XMS_ITS ---
Author Organization [facility] Address [address] [place] [address] Phone Care Team Providers Care Caseworker Intake Name Role Phone CAROLA CHAO Primary Care Provider [phone] Plan of Treatment No Plan of Treatment Recorded Assessments Includes: Assessments for all patient encounters No Assessments Recorded Medical Equipment - Implanted Devices Includes: Current and historical Devices No Medical Equipment Recorded Medications Administered Includes: Administered Medications in patient's chart No Administered Medications Recorded Results Includes: Results from 09/21/2023 through 09/20/2024 No Results Recorded For Specified Dates History of Present Illness History of Present Illness not supported for this document type No History of Present Illness Recorded Social History No Social History Recorded - Smoking Status Unknown Medical History Includes: Medical History in patient's chart No Medical History Recorded Family History Includes: Family History in patient's chart No Family History Recorded Review of Systems Review of Systems not supported for this document type No Review of Systems Recorded Mental Status No Mental Status Recorded Functional Status No Functional Status Recorded Physical Exam Physical Exam not supported for this document type No Physical Exam Recorded Insurance Includes: Active Insurance Policies Plan Name Member ID Group # Subscriber Relationship Effect patrick Dates 1 - [facility] [id number] STEFANY CRANE Se lf Clinical Notes Includes: Signed Clinical Notes starting from 06/14/2022 No Clinical Notes Recorded
--- OUTSIDE RECORDS SUMMARY | 2024-09-20 13:53 | XMS_ITS | Clinical Summary ---
Author Organization [facility] Address [address] [place] [address] Phone Care Team Providers Care Community Director Name Role Phone CAROLA CHAO Primary Care Provider [phone] Reason for Visit and Chief Complaint HEART [...] Subscriber Relationship Effect patrick Dates 1 - [facility] [id number] STEFANY CRANE Se lf Clinical Notes Includes: Clinical Notes from this encounter No Clinical Notes Recorded
--- OUTSIDE RECORDS SUMMARY | 2024-09-20 13:53 | XMS_ITS ---
Author Organization [facility] Address [address] [place] [address] Phone Care Team Providers Care Moisture Meter Operator Name Role Phone CAROLA CHAO Primary Care Provider [phone] Plan of Treatment No Plan of Treatment [...] Subscriber Relationship Effect patrick Dates 1 - [facility] [id number] STEFANY CRANE Se lf Clinical Notes Includes: Signed Clinical Notes starting from 06/14/2022 No Clinical Notes Recorded
== END 2024-09-20 13:00 | disposition home or self-care (01) ==
PROVIDERS: Emergency Provider Nurse Practitioner; PCP Physician Assistant
DX: J40 Bronchitis, not specified as acute or chronic (principal); J06.9 Acute upper respiratory infection, unspecified; K21.9 Gastro-esophageal reflux disease without esophagitis; Z79.82 Long term (current) use of aspirin
CPT/HCPCS: 71046; 99213; G0463

== ENCOUNTER 2024-11-08 07:01 | Emergency (ER) | payer OTHER, SELFPAY ==
--- NOTE | ~2024-11-08 | XR_ITS ---
Portable chest x-ray Comparison: 09/20/2024 Clinical History: Wheezing Findings: Lungs are clear, without focal consolidation or pleural effusion. Possible pulmonary hyper tension. Cardiomediastinal silhouette is stable. Bones and soft tissues are unremarkable. Impression: Clear lungs. Possible pulmonary artery hypertension. Reviewed, dictated and finalized at location . Impression: Clear lungs. Possible pulmonary artery hypertension.
--- OUTSIDE RECORDS SUMMARY | 2024-11-08 07:03 | XMS_ITS | Clinical Summary ---
[facility] Address [address] [address] Phone Care Team Providers Care Centrifugal Separator Name Role Phone Provider, None Primary Care [...] Comments Blood Pressure 119/86 05/21/2019 12:23 AM SENIOR QUANTITY SURVEYOR Pulse 65 05/21/2019 12:23 AM SENIOR QUANTITY SURVEYOR Temperature 36.8 C (98.3 F) 05/20/2019 9:39 PM SENIOR QUANTITY SURVEYOR Respiratory Rate 18 05/21/2019 12:23 AM SENIOR QUANTITY SURVEYOR Oxygen Saturation 97% 05/21/2019 12:23 AM SENIOR QUANTITY SURVEYOR Inhaled Oxygen Concentration - - Weight 90.7 kg (200 lb) 05/20/2019 9:39 PM SENIOR QUANTITY SURVEYOR Height 180.3 cm (5' 11) 05/20/2019 9:39 PM SENIOR QUANTITY SURVEYOR Body Mass Index 27.89 05/20/2019 9:39 PM SENIOR QUANTITY SURVEYOR Plan of Treatment Health Maintenance Due Date [...] age to complete this topic Care Teams Centrifugal Separator Relationship Specialty Start Date End Date Provider, None [place] PCP - General 04/22/16
[2024-11-08 07:12] VITALS: BP 126/81; PULSE 74; RESP 18; TEMP 36.9; O2SAT 92
--- NOTE | 2024-11-08 07:16 | ED_ITS ---
HPI - URI/Sore Throat General Chief Complaint: Upper Respiratory Infection Stated Complaint: Wheezy Time Seen by Provider: 11/08/24 07:16 Source: patient Mode of arrival: ambulatory History of Present Illness HPI Narrative: 65 years old white male, history of seasonal allergy, SVT, presents with generalized wheezing, runny nose, postnasal clear discharge started 2-3 days ago, patient works out door. Patient reports having similar symptoms 1 month ago got better on Benadryl and albuterol. He denies any fever, chills, nausea, vomiting, chest pain. Patient quit smoking 20 years ago, drinks alcohol occasionally, denies drug use. Related Data Home Medications ?Medication ?Instructions ?Recorded ?Confirmed ?Last Taken ?Type aspirin 81 mg tablet,delayed 81 mg PO DAILY 03/21/21 11/27/21 Unknown History release (Adult Low Dose Aspirin) diltiazem HCl 300 mg 300 mg PO DAILY 03/21/21 11/27/21 Unknown History capsule,extended release 24 hr lansoprazole 30 mg capsule,delayed 30 mg PO DAILY 03/21/21 11/27/21 Unknown History release (Prevacid) metoprolol succinate 25 mg mg PO 09/20/24 Unknown History tablet,extended release 24 hr Allergies Allergy/AdvReac Type Severity Reaction Status Date / Time niacin Allergy Unknown Unknown Verified 11/08/24 07:14 Review of Systems Review of Systems: All systems reviewed & are unremarkable except as noted in HPI and below PMFSH Past Medical History Medical History GERD (gastroesophageal reflux disease) SVT (supraventricular tachycardia) Social History Social History Smoking status: Never smoker Exam Narrative: General appearance: Well-developed, well-nourished Skin: Normal color Head: Normocephalic, nontraumatic Eyes: Clear conjunctiva ENT: Oropharynx normal, ears normal, nose normal Neck: Supple, nontender Chest and respiratory: Generalized wheezing bilaterally Heart: Regular rate/rhythm Abdomen: Soft, nontender, no organomegaly, quiet bowel sounds Vascular: Normal peripheral pulses, normal capillary refill. Musculoskeletal: Normal range of motion, nontender back Neurologic: Alert and oriented ?3, [employer] is normal as tested, no gross motor deficit Course Vital Signs Vital signs: Vital Signs Temperature 36.9 C 11/08/24 07:12 Pulse Rate 74 11/08/24 07:12 Respiratory Rate 18 11/08/24 07:12 Blood Pressure 126/81 11/08/24 07:12 Pulse Oximetry 92 11/08/24 07:12 Oxygen Delivery Room Air 11/08/24 07:12 Temperature 36.9 C 11/08/24 07:12 Pulse Rate 74 11/08/24 07:12 Respiratory Rate 18 11/08/24 07:12 Blood Pressure 126/81 11/08/24 07:12 Pulse Oximetry 92 11/08/24 07:18 Oxygen Delivery Room Air 11/08/24 07:18 MDM - URI/Sore Throat MDM Narrative Medical decision making narrative: differential diagnosis include allergic rhinitis, bronchospasm, less likely pneumonia /bronchitis Chest x-ray showed no acute abnormality Patient received prednisone, albuterol, Atrovent, Of work for next 2 days Discharged on prednisone, Symbicort, and Zyrtec and continue home albuterol inhaler Differential Diagnosis Differential diagnosis: Likely other ( as above) Imaging Data Radiologist's impression: chest x-ray showed no acute abnorm Critical Care Time Critical Care Time Critical Care Time: No Discharge Plan Discharge Clinical Impression: Allergic rhinitis, Acute bronchospasm Patient Disposition: Home Condition: Improved Instructions: Allergies (ED), Bronchospasm (ED) Additional Instructions: Return if symptoms are worsening , call your family physician for appointment, take Tylenol as as needed for aches and pain, continue home medications. Patient Language: Romanian Prescriptions: New prednisone 20 mg tablet 40 mg PO DAILY 5 Days Qty: 10 0RF budesonide-formoterol [Symbicort] 160-4.5 mcg/actuation HFA aerosol inhaler 2 puff inhalation Q12H Qty: 10.2 0RF Zyrtec 10 mg capsule 10 mg PO DAILY PRN (Reason: allergy symptoms) Qty: 30 0RF No Action diltiazem HCl 300 mg capsule,extended release 24hr 300 mg PO DAILY aspirin [Adult Low Dose Aspirin] 81 mg Tablet,Delayed Release (Dr/Ec) 81 mg PO DAILY lansoprazole [Prevacid] 30 mg Capsule,Delayed Release(Dr/Ec) 30 mg PO DAILY metoprolol succinate 25 mg tablet extended release 24 hr PO albuterol sulfate 90 mcg/actuation HFA aerosol inhaler 2 puff inhalation QID PRN (Reason: shortness of breath or wheezing) Qty: 6.7 0RF Follow-up/Referrals: Mik,REGULO Esparza [Primary Care Provider] - Stand Alone Forms: Work/School Release IP
[2024-11-08 07:18] VITALS: O2SAT 92
[2024-11-08] MEDS: ALBUTEROL SULFATE NEB 2.5 MG/3 ML INH 10 MG INHALATION (07:53)
[2024-11-08] MEDS: predniSONE 20 MG TABLET 60 MG PO (07:53)
[2024-11-08] MEDS: IPRATROPIUM BR 0.02% INH SOLN 0.5 MG/2.5 ML VIAL INHALATION (07:54)
[2024-11-08 07:56] VITALS: PULSE 70; RESP 18; O2SAT 95
--- OUTSIDE RECORDS SUMMARY | 2024-11-08 07:56 | XMS_ITS | Clinical Summary ---
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[employer]ONSORSHIPS Pulse 65 05/21/2019 12:23 AM DIRECTOR [employer] Temperature 36.8 C (98.3 F) 05/20/2019 9:39 PM DIRECTOR [employer] Respiratory Rate 18 05/21/2019 12:23 AM DIRECTOR [employer] Oxygen Saturation 97% 05/21/2019 12:23 AM DIRECTOR [employer] Inhaled Oxygen Concentration - - Weight 90.7 kg (200 lb) 05/20/2019 9:39 PM DIRECTOR [employer] Height 180.3 cm (5' 11) 05/20/2019 9:39 PM DIRECTOR [employer]OR[employer] Body Mass Index 27.89 05/20/2019 9:39 PM DIRECTOR [employer] Plan of Treatment Health Maintenance Due Date [...] age to complete this topic Care Teams Outsole Beveler Relationship Specialty Start Date End Date Provider, None [place] PCP - General 04/22/16
[2024-11-08 08:00] VITALS: BP 125/72; PULSE 68; RESP 17; O2SAT 93
[2024-11-08 08:38] VITALS: PULSE 74; RESP 16; O2SAT 98
[2024-11-08 08:50] VITALS: BP 126/69; PULSE 65; RESP 17; TEMP 36.9; O2SAT 93
== END 2024-11-08 08:50 | disposition home or self-care (01) ==
PROVIDERS: Emergency Provider Emergency Medicine; PCP Physician Assistant
DX: J30.9 Allergic rhinitis, unspecified (principal); J98.01 Acute bronchospasm
CPT/HCPCS: 71045; 94640; 99283; J7512